=== PATIENT | female | born 1970 | race Caucasian/White ===

== ENCOUNTER 2023-11-09 05:54 | Inpatient (IN) | payer MEDICARE ==
[2023-11-09] MEDS ORDERED: Vancomycin 1 GM VIAL ONE (06:24)
[2023-11-09] MEDS ORDERED: PROPOFOL 20 ML ONE (06:53)
[2023-11-09] MEDS ORDERED: Fentanyl 250 MCG/5 ML VIAL ONE (06:53)
[2023-11-09] MEDS ORDERED: Lidocaine 1% PF 5 ML VIAL ONE (06:53)
[2023-11-09] MEDS ORDERED: Rocuronium Bromide 10 MG/ML (10ML VIAL) ONE (06:53)
[2023-11-09] MEDS ORDERED: Sodium Chloride 0.9% 100 ML ONE (06:56)
[2023-11-09] MEDS ORDERED: CEFAZOLIN 2 GM VIAL ONE (06:56)
[2023-11-09 07:07] LABS: Hematocrit 40.6 % (36.0-47.0); Hemoglobin 12.7 g/dL (12.0-16.0); Mean Corpuscular HGB CONC 31.3 g/dL (32.0-36.0); Mean Corpuscular Hemoglobin 27.8 pg (27.0-31.0); Mean Corpuscular Volume 88.8 fl (78.0-98.0); Mean Platelet Volume 10.4 fL (7.4-10.4); Platelet Count 330 10x3/uL (130-400); RBC Distribution Width 14.5 % (11.5-14.5); Red Blood Cell (RBC) Count 4.57 mill/uL (4.20-5.40); White Blood Cell (WBC) Count 7.5 10x3/uL (4.8-10.8)
[2023-11-09] MEDS ORDERED: Midazolam HCl 2 mg/2 ml Vial ONE (07:17)
[2023-11-09] MEDS ORDERED: diphenhydrAMINE 50 MG/ML VIAL IVP PRN (07:23)
[2023-11-09] MEDS ORDERED: Milk Of Magnesia 30 ML UDCUP PO PRN (07:23)
[2023-11-09] MEDS ORDERED: traMADol HCl 50 MG TAB PO PRN (07:23)
[2023-11-09 07:34] LABS: Anion Gap 16 mmol/L (10-20); BUN (Urea Nitrogen) 19 mg/dL (9.8-20.1); Calc. Creatinine Clearance 125 mL/min (70-130); Calcium 9.4 mg/dL (7.8-10.44); Carbon Dioxide 21 mmol/L (22-29); Chloride 105 mmol/L (98-107); Estimated GFR 97; Glucose 110 mg/dL (70-105); Potassium 4.1 mmol/L (3.5-5.1); Sodium 138 mmol/L (136-145)
[2023-11-09] MEDS ORDERED: Dexamethasone 20 MG/5 ML VIAL ONE (07:56)
[2023-11-09] MEDS ORDERED: Ondansetron PF 4 MG/2 ML Vial ONE (07:56)
[2023-11-09] MEDS ORDERED: Phenylephrine 10 MG/ML VIAL ONE (08:05)
[2023-11-09] MEDS ORDERED: Sodium Chloride 0.9% 300 ML ONE (08:27)
[2023-11-09] MEDS ORDERED: Dexmedetomidine 200 MCG/2 ML VIAL ONE (08:27)
[2023-11-09] MEDS ORDERED: Ketamine In 0.9 % NaCl 50 MG/5 ML SYRINGE ONE (08:32)
[2023-11-09] MEDS ORDERED: Lidocaine 2% PF 5 ML VIAL ONE (08:48)
[2023-11-09] MEDS ORDERED: Glycopyrrolate 0.2 MG/ML 5 ML SYRINGE ONE (08:50)
[2023-11-09] MEDS ORDERED: NEOSTIGMINE 3 MG/3 ML SYR 3 MG/3 ML SYRINGE ONE (08:50)
[2023-11-09] MEDS ORDERED: HYDROmorphone 0.5 MG/0.5 ML SYRINGE ONE ×2 (10:06→10:17)
[2023-11-09] MEDS ORDERED: fentaNYL 50 mcg/mL 1 mL Vial ONE (10:37)
[2023-11-09] MEDS: Pregabalin 75 MG CAP PO SCH (11:35)
[2023-11-09] MEDS: oxyCODONE/Acetaminophen 5 mg/325 mg Tablet PO PRN (12:46)
[2023-11-09] MEDS: Sodium Chloride 0.9% 1,000 ML IV SCH (13:07)
[2023-11-09] MEDS: CEFAZOLIN 2 GM in Sodium Chloride 0.9% 100 ML IVPB SCH (14:49)
[2023-11-10] MEDS: Morphine 2 MG/ML VIAL SLOW IVP PRN (03:17)
[2023-11-10] MEDS: Ondansetron PF 4 MG/2 ML Vial IVP PRN (03:21)
[2023-11-10] MEDS: Promethazine HCl 12.5 MG in Sodium Chloride 0.9% 50 ML IVPB SCH (10:01)
[2023-11-10 11:21] VITALS: BMI 38.2
[2023-11-10] MEDS: Dexamethasone 4 mg/ml Vial SLOW IVP SCH (15:25)
[2023-11-10] MEDS ORDERED: Promethazine HCl 12.5 MG in Sodium Chloride 0.9% 50 ML IVPB PRN (16:00)
[2023-11-10] MEDS: oxyCODONE/Acetaminophen 5 mg/325 mg Tablet PO PRN (19:55)
[2023-11-10] MEDS: Cyclobenzaprine 10 MG TAB PO PRN (19:56)
[2023-11-10] MEDS: Mag-Al 1200 mg/1200 mg/30 ML UDCUP PO PRN (21:00)
[2023-11-10] MEDS: Acetaminophen 325 MG TAB PO PRN (22:38)
[2023-11-10] MEDS: Pregabalin 75 MG CAP PO SCH (23:45)
[2023-11-11] MEDS ORDERED: Lidocaine 1% (PF) 30 ML VIAL ONE (07:45)
[2023-11-11 07:49] VITALS: BP 133/80; TEMP 98.2
== END 2023-11-11 12:40 | disposition home or self-care (01) | DRG 460 ==
LOC: SDC 05:54 → T4-B 07:23
PROVIDERS: ADMIT Neurological Surgery; ATTEND Neurological Surgery
PROC: 0SG0071 Fusion of Lumbar Vertebral Joint with Autologous Tissue Substitute, Posterior Approach, Posterior Column, Open Approach (ICD-10-PCS; principal; 2023-11-09)
PROC: 01NB0ZZ Release Lumbar Nerve, Open Approach (ICD-10-PCS; 2023-11-09)
DX: M48.061 Spinal stenosis, lumbar region without neurogenic claudication (principal); M43.16 Spondylolisthesis, lumbar region; G89.29 Other chronic pain; I10 Essential (primary) hypertension
CPT/HCPCS: 80048; 85027; 93005; 93010; C1713; C1889; J1100; J1170; J2001; J2250; J2272; J2371; J2405; J2550; J2704; J3010; J3370; J3490; J7050